=== PATIENT | female | born 1965 | race Caucasian/White ===

== ENCOUNTER 2020-02-21 08:56 | Emergency (ER) | payer BC, OTHER ==
--- NOTE | 2020-02-21 10:37 | EDPHYS ---
Physician Documentation [facility] Name: Amina Chung Age: 54 yrs Sex: Female : 1965 Arrival Date: 02/21/2020 Time: 08:58 Bed 19 Private MD: LISS MORRELL ED Physician Zacarias Page HPI: 02/20 10:34 This 54 yrs old Female presents to ER via Ambulatory with complaints of Leg kb Swelling. 10:34 The patient presents with pain, swelling. The complaints affect the right quadriceps. kb Context: The problem was sustained at home, resulted from an unknown cause, the patient can fully bear weight, the patient is able to ambulate, Problem is a result from a previous injury: No. Onset: The symptoms/episode began/occurred 2 day(s) ago. Modifying factors: The symptoms are alleviated by nothing. the symptoms are aggravated by nothing. Associated signs and symptoms: Pertinent positives: swelling, Pertinent negatives calf tenderness, fever, nausea, numbness, rash, tingling, vomiting, warmth, weakness. Treatment prior to arrival includes: no previous treatment. Severity of symptoms: At their worst the symptoms were mild, moderate, in the emergency department the symptoms are unchanged. The patient has not experienced similar symptoms in the past. The patient has not recently seen a physician. Pt reports right thigh pain and swelling for 2 days. Went to her PCP today and was sent for an US to rule out DVT. 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 - Social history:: Smoking status: Patient denies any tobacco usage or history of. ROS: 10:33 Constitutional: Negative for fever, chills, and weight loss, Cardiovascular: Negative kb for chest pain, palpitations, and edema, Respiratory: Negative for shortness of breath, cough, wheezing, and pleuritic chest pain, Abdomen/GI: Negative for abdominal pain, nausea, vomiting, diarrhea, and constipation, Back: Negative for injury and pain, Skin: Negative for injury, rash, and discoloration, Neuro: Negative for headache, weakness, numbness, tingling, and seizure. 10:33 MS/extremity: Positive for pain, swelling, of the right quadriceps. Exam: 10:33 Constitutional: This is a well developed, well nourished patient who is awake, alert, kb and in no acute distress. Head/Face: Normocephalic, atraumatic. Chest/axilla: Normal chest wall appearance and motion. Nontender with no deformity. No lesions are appreciated. Cardiovascular: Regular rate and rhythm with a normal S1 and S2. No gallops, murmurs, or rubs. Normal PMI, no JVD. No pulse deficits. Respiratory: Lungs have equal breath sounds bilaterally, clear to auscultation and percussion. No rales, rhonchi or wheezes noted. No increased work of breathing, no retractions or nasal flaring. Abdomen/GI: Soft, non-tender, with normal bowel sounds. No distension or tympany. No guarding or rebound. No evidence of tenderness throughout. Skin: Warm, dry with normal turgor. Normal color with no rashes, no lesions, and no evidence of cellulitis. MS/ Extremity: Pulses equal, no cyanosis. Neurovascular intact. Full, normal range of motion. Neuro: Awake and alert, GCS 15, oriented to person, place, time, and situation. Cranial nerves II-XII grossly intact. Motor strength 5/5 in all extremities. Sensory grossly intact. Cerebellar exam normal. Normal gait. Vital Signs: 09:41 BP 143 / 76; Pulse 75; Resp 15 S; Temp 97.3(TE); Pulse Ox 100% on R/A; Weight 96.62 kg ca1 (R); Height 5 ft. 4 in. (162.56 cm) (R); Pain 5/10; 10:30 BP 132 / 85; Pulse 76; Resp 18; Temp 97.5; Pulse Ox 99% on R/A; ph 09:41 Body Mass Index 36.56 (96.62 kg, 162.56 cm) ca1 MDM: 09:53 Patient medically screened. kb 10:34 Data reviewed: vital signs, nurses notes. Data interpreted: Pulse oximetry: on room air kb is 100 %. Interpretation: normal. 10:35 Counseling: I had a detailed discussion with the patient and/or guardian regarding: the kb historical points, exam findings, and any diagnostic results supporting the discharge/admit diagnosis, radiology results, the need for outpatient follow up, a family practitioner, to return to the emergency department if symptoms worsen or persist or if there are any questions or concerns that arise at home. 02/20 09:47 Order name: US Extremity Venous Unilateral Ltd kb Administered Medications: No medications were administered Disposition: 12:25 Co-signature as Attending Physician, Zacarias Page MD. rn Disposition: 02/21/20 10:36 Discharged to Home. Impression: Pain in right leg. - Condition is Stable. - Discharge Instructions: Musculoskeletal Pain. - Medication Reconciliation Form, Thank You Letter, Antibiotic Education, Prescription Opioid Use form. - Follow up: Emergency Department; When: As needed; Reason: Worsening of condition. Follow up: LISS MORRELL; When: 2 - 3 days; Reason: Recheck today's complaints, Continuance of care, Re-evaluation by your physician. Signatures: Dispatcher [employer] EDMS Felicia Harrison, ASSEMBLER INSTALLER GENERAL-C ASSEMBLER INSTALLER GENERAL-Ckb Zacarias Page MD MD rn Sonya Manriquez RN RN aa5 Maren Adan RN RN ca1 Corrections: (The following items were deleted from the chart) 10:57 10:36 02/21/2020 10:36 Discharged to Home. Impression: Pain in right leg. Condition is aa5 Stable. Forms are Medication Reconciliation Form, Thank You Letter, Antibiotic Education, Prescription Opioid Use. Follow up: Emergency Department; When: As needed; Reason: Worsening of condition. Follow up: LISS MORRELL; When: 2 - 3 days; Reason: Recheck today's complaints, Continuance of care, Re-evaluation by your physician. kb
--- NOTE | 2020-02-21 10:37 | ER ---
Nurse's Notes [facility] Name: Amina Chung Age: 54 yrs Sex: Female : 1965 Arrival Date: 02/21/2020 Time: 08:58 Bed 19 Private MD: LISS MORRELL Diagnosis: Pain in right leg Presentation: 02/20 09:41 Chief complaint: Patient states: R leg swelling x 2 days, Pain on R thigh x 4-5 days. ca1 Referred by Marilyn Morrell for possible DVT. Denies hx of DVT. Coronavirus screen: Patient denies a cough. Patient denies shortness of breath or difficulty breathing. Patient denies measured and/or subjective temperature greater than 100.4F prior to today's visit. Patient denies travel on a cruise ship or to a country the [facility] currently lists as an affected area. Patient denies contact with known and/or suspected case of COVID-19. Proceed with normal triage. Ebola Screen: Patient negative for fever greater than or equal to 101.5 degrees Fahrenheit, and additional compatible Ebola Virus Disease symptoms Patient denies exposure to infectious person. Patient denies travel to an Ebola-affected area in the 21 days before illness onset. No symptoms or risks identified at this time. Initial Sepsis Screen: Does the patient meet any 2 criteria? No. Patient's initial sepsis screen is negative. Does the patient have a suspected source of infection? No. Patient's initial sepsis screen is negative. Risk Assessment: Do you want to hurt yourself or someone else? Patient reports no desire to harm self or others. Onset of symptoms was February 21, 2020. 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 - Social history:: Smoking status: Patient denies any tobacco usage or history of. Screenin:30 Abuse screen: Denies threats or abuse. Denies injuries from another. Nutritional ph screening: No deficits noted. Tuberculosis screening: No symptoms or risk factors identified. Fall Risk None identified. Assessment: 10:00 General: Appears in no apparent distress. uncomfortable, Behavior is calm, cooperative, ph appropriate for age, Denies fever. Pain: Complains of pain in medial aspect of right thigh. Neuro: Level of Consciousness is awake, alert, obeys commands, Oriented to person, place, time, situation. Cardiovascular: Denies chest pain, shortness of breath, Capillary refill < 3 seconds in bilateral fingers toes Patient's skin is warm and dry. Respiratory: Airway is patent Respiratory effort is even, unlabored, Respiratory pattern is regular, symmetrical, Denies shortness of breath. Derm: Skin is intact, Skin is pink, warm \T\ dry. Musculoskeletal: Circulation, motion, and sensation intact. Range of motion: intact in all extremities, Swelling present in right quadriceps. 10:55 Reassessment: Patient is alert, oriented x 3, equal unlabored respirations, skin aa5 warm/dry/pink. Vital Signs: 09:41 BP 143 / 76; Pulse 75; Resp 15 S; Temp 97.3(TE); Pulse Ox 100% on R/A; Weight 96.62 kg ca1 (R); Height 5 ft. 4 in. (162.56 cm) (R); Pain 5/10; 10:30 BP 132 / 85; Pulse 76; Resp 18; Temp 97.5; Pulse Ox 99% on R/A; ph 09:41 Body Mass Index 36.56 (96.62 kg, 162.56 cm) ca1 ED Course: 08:58 Patient arrived in ED. ag5 08:58 LISS MORRELL is Private Physician. ag5 09:00 Felicia Harrison FNP-C is [facility]. kb 09:00 Zacarias Page MD is Attending Physician. kb 09:44 Triage completed. ca1 09:45 Arm band placed on right wrist. ca1 09:58 Jaye Lopez, FREDERICK is Primary Nurse. ph 10:25 US Extremity Venous Unilateral Ltd In Process Unspecified. EDMS 10:30 Patient has correct armband on for positive identification. Placed in gown. Bed in low ph position. Call light in reach. 10:35 LISS MORRELL is Referral Physician. kb 10:55 Patient did not have IV access during this emergency room visit. aa5 10:55 No provider procedures requiring assistance completed. aa5 Administered Medications: No medications were administered Outcome: 10:36 Discharge ordered by . indira 10:55 Discharged to home ambulatory. aa5 10:55 Condition: stable 10:55 Discharge instructions given to patient, Instructed on discharge instructions, follow up and referral plans. Demonstrated understanding of instructions, follow-up care. 10:57 Patient left the ED. aa5 Signatures: Dispatcher [employer] EDFelicia Gibson, WEI-C PROCESS HELPER-Sonya Dumont, RN RN aa5 Jaye Lopez RN RN Antionette, Maren RN RN [facility] Kathryn Galicia [facility]
--- NOTE | 2020-02-21 10:58 | RAD REPORT ---
EXAM DESCRIPTION: US - Extremity Venous Uni Ltd - 02/21/2020 10:25 am CLINICAL HISTORY: Pain;Swelling COMPARISON: None. TECHNIQUE: Real-time sonographic evaluation of the right lower extremity deep venous systems was per formed. One cine loop sequence was accidentally labeled left leg FINDINGS: Normal compressibility, flow augmentation, phasic flow and spontaneous flow are identified in the right lower extremity common femoral, superficial femoral, popliteal and posterior tibial vei ns. No intraluminal filling defects seen. IMPRESSION: No DVT in the right lower extremity.
--- OUTSIDE RECORDS SUMMARY | 2020-02-21 11:41 | XMS REPORT | Continuity of Care Document ---
:1965 Author Organization [facility] t Address [address] [place] [address] Care Team Providers Name Role Phone Jason LANDA Attending Clinician Doctor Unassigned, Name Attending Clinician Unavailable Problems This patient has no known problems. Allergies, Adverse Reactions, Alerts This patient has no known allergies or adverse reactions. Medications This patient has no known medications. Procedures This patient has no known procedures. Encounters Start End Encounter Admission Attending Care Care Encounter Source Date/Time Date/Time Type Type Clinicians Facility Department ID 2019-09-27 2019-09-27 Urgent FERMIN Gomez [id number] 19:57:26 20:12:26 Care [facility] [id number] Surgical [id number] Specialti [id number] [address] [place] 2019-09-27 2019-09-27 Orders Doctor PATEL [id number] 00:00:00 00:00:00 Only Unassigned, DIETER [id number] Ronan [facility] [id number] Results This patient has no known results.
[2020-02-22 02:02] VITALS: BP 143/76; TEMP 97.3; O2SAT 100
== END 2020-02-21 10:57 | disposition home or self-care (01) ==
LOC: ER 08:56
DX: M79.661 Pain in right lower leg (principal)
CPT/HCPCS: 93971; 99283

== ENCOUNTER 2021-08-08 17:51 | Emergency (ER) | payer OTHER ==
--- OUTSIDE RECORDS SUMMARY | 2021-08-08 17:53 | XMS REPORT | Continuity of Care Document ---
:1965 Author Organization [facility] t Address [address] [place] [address] Care Team Providers Name Role Phone Nel Montgomery Primary Care Physician Jahaira FRANKEL L Attending Clinician Carin CAMPO Attending Clinician Unavailable Doctor Unassigned, Name Attending Clinician Unavailable Jason LANDA Attending Clinician Payers Payer Name Policy Type Policy Number Effective Date Expiration Date S ource Problems Condition Condition Condition Status Onset Resolution Last Treating Co mments Source Name Details Category Date Date Treatment Clinician Date No known No known Disease Unive rs active active ity of problems problems [facility] Allergies, Adverse Reactions, Alerts Allergy Allergy Status Severity Reaction(s) Onset Inactive Treating Comm ents Source Name Type Date Date Clinician NO KNOWN Drug Active Univers ALLERGIE Class ity of S [facility] Social History Social Habit Start Date Stop Date Quantity Comments Source Exposure to Not sure [facility] SARS-CoV-2 (event) Medica l [place] Tobacco use and 2018-10-08 2018-10-08 Never used [facility] exposure 00:00:00 00:00:00 Medical [place] Sex Ass[birth year] At [birth year] [facility] [place] 00:00:00 00:00:00 Medical Branch Smoking Status Start Date Stop Date Source Never smoker [facility] Medical Branch Medications Ordered Filled Start Stop Current Ordering Indication Dosage Frequency Signature Comments Components Source Medication Medication Date Date Medication? Clinician (SIG) Name Name methylPREDN 2021-0 Yes [id number] 84mg Take 21 Univers ISolone 9-27 tablets by ity of (MEDROL, 00:00: mouth [place] TERE,) 4 mg 00 SEE-INSTRU Med ical tablets CTIONS. Branch follow package directions methylPREDN 202-0 Yes [id number] 84mg Take 21 Univers ISolone 9-27 tablets by ity of (MEDROL, 00:00: mouth [place] TERE,) 4 mg 00 SEE-INSTRU Med ical tablets CTIONS. Branch follow package directions methylPREDN 1-0 Yes [id number] 84mg Take 21 Univers ISolone 9-27 tablets by ity of (MEDROL, 00:00: mouth [place] TERE,) 4 mg 00 SEE-INSTRU Med ical tablets CTIONS. Branch follow package directions methylPREDN 2020-0 Yes [id number] 84mg Take 21 Univers ISolone 9-15 tablets by ity of (MEDROL, 00:00: mouth [place] TERE,) 4 mg 00 SEE-INSTRU Med ical tablets CTIONS. Branch follow package directions methylPREDN 2020-0 Yes Take by Un fátima ISolone 9-15 mouth ity of (MEDROL, 00:00: SEE-INSTRU Le[place] as TERE,) 4 mg 00 CTIONS. Medica l tablets follow Branch package directions methylPREDN 1-0 Yes [id number] 84mg Take 21 Univers ISolone 9-15 tablets by ity of (MEDROL, 00:00: mouth [place] TERE,) 4 mg 00 SEE-INSTRU Med ical tablets CTIONS. Branch follow package directions methylPREDN 2021-0 Yes Take by Un fátima ISolone 9-15 mouth ity of (MEDROL, 00:00: SEE-INSTRU Leonel as TERE,) 4 mg 00 CTIONS. Medica l tablets follow Branch package directions methylPREDN 2021-0 Yes [id number] 84mg Take 21 Univers ISolone 9-15 tablets by ity of (MEDROL, 00:00: mouth [place] TERE,) 4 mg 00 SEE-INSTRU Med ical tablets CTIONS. Branch follow package directions methylPREDN 2021-0 Yes Take by Un fátima ISolone 9-15 mouth ity of (MEDROL, 00:00: SEE-INSTRU Leonel as TERE,) 4 mg 00 CTIONS. Medica l tablets follow Branch package directions naproxen 0 Yes [id number] 500mg Take 1 Univers (NAPROSYN) 02-27 [id number] tablet by it y of 500 mg 00:00: mouth 2 [place] tablet 00 (two) Medical times Branch daily with meals. naproxen 0 Yes [id number] 500mg Take 1 Univers (NAPROSYN) 7 [id number] tablet by it y of 500 mg 00:00: mouth 2 [place] tablet 00 (two) Medical times Branch daily with meals. naproxen 0 Yes [id number] 500mg Take 1 Univers (NAPROSYN) 02-27 [id number] tablet by it y of 500 mg 00:00: mouth 2 [place] tablet 00 (two) Medical times Branch daily with meals. methylPREDN 2019-0 Yes [id number] Take by Univers ISolone 2-25 mouth ity of (MEDROL, 00:00: SEE-INSTRU Leonel as TERE,) 4 mg 00 CTIONS. Medica l tablets follow Branch package directions bromphenira 2020-0 Yes [id number] 5mL Take 5 mL Univers mine-pseudo 2-25 by mouth 3 it y of ephedrine-D 00:00: (three) [place] as M (BROMFED 00 times Medical DM) 2-30-10 daily as Bran ch mg/5 mL needed for syrup Congestion /Allergies . cetirizine 2020-0 Yes [id number] 10mg Take 1 U nivers 10 mg 2-25 tablet by ity of tablet 00:00: mouth [place] 00 daily. Medical Branch methylPREDN 2020-0 Yes [id number] Take by Univers ISolone 2-25 mouth ity of (MEDROL, 00:00: SEE-INSTRU Leonel as TERE,) 4 mg 00 CTIONS. Medica l tablets follow Branch package directions bromphenira 2020-0 Yes [id number] 5mL Take 5 mL Univers mine-pseudo 2-25 by mouth 3 it y of ephedrine-D 00:00: (three) [place] as M (BROMFED 00 times Medical DM) 2-30-10 daily as Bran ch mg/5 mL needed for syrup Congestion /Allergies . cetirizine 0 Yes [id number] 10mg Take 1 U nivers 10 mg 2-25 tablet by ity of tablet 00:00: mouth [place] 00 daily. Medical Branch methylPREDN 0 Yes [id number] Take by Univers ISolone 2-25 mouth ity of (MEDROL, 00:00: SEE-INSTRU Leonel as TERE,) 4 mg 00 CTIONS. Medica l tablets follow Branch package directions bromphenira 0 Yes [id number] 5mL Take 5 mL Univers mine-pseudo 2-25 by mouth 3 it y of ephedrine-D 00:00: (three) [place] as M (BROMFED 00 times Medical DM) 2-30-10 daily as Bran ch mg/5 mL needed for syrup Congestion /Allergies . cetirizine Yes [id number] 10mg Take 1 U nivers 10 mg 2-25 tablet by ity of tablet 00:00: mouth [place] 00 daily. Medical Branch butalbital- Yes 1{tbl} Take 1 Un fátima acetaminoph 1-24 tablet by ity of en-caff 00:00: mouth [place] 50-325-40 00 every 4 Medical mg tablet (four) Branch hours as needed for Pain (scale 1-3). butalbital- Yes 1{tbl} Take 1 Un fátima acetaminoph 1-24 tablet by ity of en-caff 00:00: mouth [place] 50-325-40 00 every 4 Medical mg tablet (four) Branch hours as needed for Pain (scale 1-3). butalbital- Yes 1{tbl} Take 1 Un fátima acetaminoph 1-24 tablet by ity of en-caff 00:00: mouth [place] 50-325-40 00 every 4 Medical mg tablet (four) Branch hours as needed for Pain (scale 1-3). metoclopram 2016-08 Yes 10mg Take 1 Univ ers kwaku HCl 10 2-07 tablet by ity of mg tablet 00:00: mouth [place] 00 every 6 Medical (six) Branch hours as needed for Nausea and Vomiting (N/V). metoclopram 2016-08 Yes 10mg Take 1 Univ ers kwaku HCl 10 2-07 tablet by ity of mg tablet 00:00: mouth [place] 00 every 6 Medical (six) Branch hours as needed for Nausea and Vomiting (N/V). metoclopram 2016-08 Yes 10mg Take 1 Univ ers kwaku HCl 10 2-07 tablet by ity of mg tablet 00:00: mouth [place] 00 every 6 Medical (six) Branch hours as needed for Nausea and Vomiting (N/V). butalbital- 2016-08 Yes 1{tbl} Take 1 Un fátima acetaminoph 2-05 tablet by ity of en-caff 00:00: mouth [place] 50-325-40 00 every 4 Medical mg tablet (four) Branch hours as needed for Pain (scale 4-6). butalbital- 2016-08 Yes 1{tbl} Take 1 Un fátima acetaminoph 2-05 tablet by ity of en-caff 00:00: mouth [place] 50-325-40 00 every 4 Medical mg tablet (four) Branch hours as needed for Pain (scale 4-6). butalbital- 2016-08 Yes 1{tbl} Take 1 Un fátima acetaminoph 2-05 tablet by ity of en-caff 00:00: mouth [place] 50-325-40 00 every 4 Medical mg tablet (four) Branch hours as needed for Pain (scale 4-6). cyclobenzap 2016-08 Yes 5mg Take 1 Univ ers rine 5 mg 2-01 tablet by ity o f tablet 00:00: mouth 3 [place] 00 (three) Medical times Branch daily. traMADOL 2016-08 Yes 50mg Take 1 Univers (ULTRAM) 50 2-01 tablet by ity of mg tablet 00:00: mouth [place] 00 every 6 Medical (six) Branch hours as needed for Pain (scale 4-6). cyclobenzap 2016-08 Yes 5mg Take 1 Univ ers rine 5 mg 2-01 tablet by ity o f tablet 00:00: mouth 3 [place] 00 (three) Medical times Branch daily. traMADOL 2016-08 Yes 50mg Take 1 Univers (ULTRAM) 50 2-01 tablet by ity of mg tablet 00:00: mouth [place] 00 every 6 Medical (six) Branch hours as needed for Pain (scale 4-6). cyclobenzap 2016-08 Yes 5mg Take 1 Univ ers rine 5 mg 2-01 tablet by ity o f tablet 00:00: mouth 3 [place] 00 (three) Medical times Branch daily. traMADOL 2016- Yes 50mg Take 1 Univers (ULTRAM) 50 2-01 tablet by ity of mg tablet 00:00: mouth [place] 00 every 6 Medical (six) Branch hours as needed for Pain (scale 4-6). Vital Signs Vital Name Observation Time Observation Value Comments Source Systolic blood 2021-06-19 19:33:00 152 mm[Hg] Univer sity of pressure [facility] Diastolic blood 2021-06-19 19:33:00 71 mm[Hg] Unive rsity of [facility] Heart rate 2021-06-19 19:33:00 85 /min [facility] Respiratory rate 2021-06-19 19:33:00 20 /min [facility] height 2021-06-19 19:33:00 162.6 cm [facility] Body weight 2021-06-19 19:33:00 91.4 kg [facility] BMI 2021-06-19 19:33:00 34.59 kg/m2 [facility] Oxygen saturation in 2021-06-19 19:33:00 98 /min [facility] Arterial blood by [facility] Pulse oximetry [place] Procedures Procedure Date / Time Performing Clinician Source Performed [facility] 2021-06-05 05:01:00 Doctor Unassigned, No Univ [facility] DOCUMENTATION Name [facility] Branch Encounters Start End Encounter Admission Attending Care Care Encounter Source Date/Time Date/Time Type Type Clinicians Facility Department ID 2021-06-19 2021-06-19 Office [facility] [id number] Univers 13:27:05 13:40:42 Visit Jeff GREWAL [id number] it y of [place] [id number] Leonel as MIRANDA?BLEA [id number] Ut [address]l BALAJI [address] Branch MEDICAL OFFICE BUILDING 2021-06-05 2021-06-05 Hospital Jahaira [facility] [id number] Univers 10:49:00 23:59:00 Encounter Jeff HARMON [id number] [id number] [id number] [address] Branch 2021-06-05 2021-06-05 [id number] [facility] 00:00:00 00:00:00 JEFF sherie [facility] 2021-06-05 2021-06-05 Orders Doctor AMANDA [id number] Univers 00:00:00 00:00:00 Only Unassigned, DIETER [id number] ity of [place] [facility] [id number] Le[place] as [id number] [place] [address] Branch 2019-09-27 2019-09-27 [facility] [id number] 19:57:26 20:12:26 Care [facility] [id number] Surgical [id number] Specialti [id number] [address] [place] 2019-09-27 2019-09-27 Orders Doctor AMANDA [id number] 00:00:00 00:00:00 Only Unassigned, DIETER [id number] [place] [facility] [id number] [id number] Results This patient has no known results.
[2021-08-08 19:30] LABS: Absolute Lymphocytes (CBC) 2.4 K/uL (0.7-4.9); Hematocrit 40.9 % (36.0-45.0); Lymphocytes % 25.1 % (15.3-44.8); MPV 8.1 fL (7.6-11.3); RBC Red Blood Cell Count 4.83 M/uL (3.86-4.86)
[2021-08-08 19:32] LABS: Protime INR 0.89
[2021-08-08 20:12] LABS: BUN Blood Urea Nitrogen 17 mg/dL (7-18); Bicarbonate 28 mmol/L (21-32); Glucose Level 119 mg/dL (74-106); Potassium 3.7 mmol/L (3.5-5.1); Sodium Level 140 mmol/L (136-145)
--- NOTE | 2021-08-08 20:15 | RAD REPORT ---
EXAM DESCRIPTION: RAD - Chest Single View - 08/08/2021 7:58 pm CLINICAL HISTORY: CHEST PAIN COMPARISON: March 2017 TECHNIQUE: AP portable chest image was obtained 08/08/2021 7:58 pm . FINDINGS: Lungs are clear. Heart and vasculature are normal. No measurable pleural effusion and no p neumothorax. No acute bony abnormality seen. No acute aortic findings suspected. IMPRESSION: No acute cardiopulmonary process. No significant change from comparison study.
[2021-08-08 21:40] LABS: ALT/SGPT 54 U/L (12-78); AST/SGOT 24 U/L (15-37); Albumin 3.7 g/dL (3.4-5.0); Alkaline Phosphatase 132 U/L (45-117); Bilirubin Direct < 0.1 mg/dL (0-0.2); Bilirubin Total 0.2 mg/dL (0.2-1.0); NT PRO-BNP 27 pg/mL (<125); Protein, Total 7.6 g/dL (6.4-8.2); Troponin (Emerg Dept Use Only) < 0.02 ng/mL (0.0-0.045)
[2021-08-08] MEDS ORDERED: LORAZEPAM 1 MG TABLET ONE (22:21)
[2021-08-08] MEDS ORDERED: ASPIRIN 81 MG CHEWABLE TABLET ONE (22:22)
[2021-08-08] MEDS ORDERED: NA CHLORIDE 0.9% 500 ML ONE (22:50)
[2021-08-08 23:32] LABS: Urine Blood Trace-lysed (Negative); Urine Glucose Negative (Negative); Urine Protein Negative (Negative); Urine Specific Gravity >=1.030 (1.005-1.030)
[2021-08-09] MEDS ORDERED: ACETAMINOPHEN 325 MG TABLET ONE (00:23)
[2021-08-09] MEDS ORDERED: ACETAMINOPHEN 500 MG TAB ONE (00:26)
--- NOTE | 2021-08-09 00:26 | ER ---
Nurse's Notes [facility] Name: Amina Chung Age: 55 yrs Sex: Female : 1965 Arrival Date: 08/08/2021 Time: 17:55 Bed 19 Private MD: Diagnosis: Elevated blood-pressure reading, without diagnosis of hypertension;Chest pain, unspecified;Shortness of breath Presentation: 08/08 19:02 Chief complaint: Patient states: chest pain, difficulty breathing and high BP since vg1 yesterday. States yesterday and today systolic of 170s. Denies h/a and NVD. Coronavirus screen: Vaccine status: Patient reports receiving the 2nd dose of the covid vaccine. Client denies travel out of the [place] in the last 14 days. Ebola Screen: Patient negative for fever greater than or equal to 101.5 degrees Fahrenheit, and additional compatible Ebola Virus Disease symptoms. Initial Sepsis Screen: Does the patient meet any 2 criteria? No. Patient's initial sepsis screen is negative. Does the patient have a suspected source of infection? No. Patient's initial sepsis screen is negative. Risk Assessment: Do you want to hurt yourself or someone else? Patient reports no desire to harm self or others. Onset of symptoms was August 08, 2021. 19:02 Method Of Arrival: Ambulatory vg1 19:02 Acuity: GRAHAM 3 vg1 Triage Assessment: 19:03 General: Appears in no apparent distress. comfortable, Behavior is calm, cooperative. vg1 Pain: Complains of pain in mid-sternal area Pain does not radiate. Pain currently is 5 out of 10 on a pain scale. Respiratory: Reports shortness of breath on exertion Airway is patent Respiratory effort is even, unlabored, Onset: The symptoms/episode began/occurred yesterday, the patient has mild shortness of breath. 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 - Social history:: Smoking status: Patient denies any tobacco usage or history of. Screenin:59 Abuse screen: Denies threats or abuse. Denies injuries from another. Nutritional kd3 screening: No deficits noted. Tuberculosis screening: No symptoms or risk factors identified. Fall Risk IV access (20 points). Assessment: 22:08 Cardiovascular:. vc1 22:24 General: Patient and daughter asked if we could retake her blood pressure since it was vc1 164/90 previously. Blood pressure now higher. Patient stated she is tired and has to work tomorrow and just wants to know why her blood pressure is rising. Patient educated on how being frustrated with having to wait so long can cause an increase in blood pressure. Patient stated she wasn't frustrated just tired. Notified provider of new blood pressure.. Cardiovascular: Rhythm is regular. Respiratory: Airway is patent Respiratory effort is even, unlabored, Respiratory pattern is regular, Breath sounds are clear. 23:00 Reassessment: Patient is alert, oriented x 3, equal unlabored respirations, skin kd3 warm/dry/pink. Patient denies pain at this time. Patient states symptoms have improved. Vital Signs: 19:02 BP 164 / 90; Pulse 87; Resp 22; Temp 97.8; Pulse Ox 100% ; Weight 84.82 kg; Height 5 vg1 ft. 4 in. (162.56 cm); Pain 5/10; 22:27 BP 193 / 98; Pulse 86; Resp 20; Pulse Ox 99% on R/A; vc1 23:00 BP 156 / 83; Pulse 72; Resp 17; Pulse Ox 98% on R/A; kd3 08/09 00:26 BP 167 / 96; Pulse 78; Resp 16; Pulse Ox 100% on R/A; kd3 08/08 19:02 Body Mass Index 32.10 (84.82 kg, 162.56 cm) vg1 ED Course: 08/08 17:55 Patient arrived in ED. mr 19:03 Triage completed. vg1 19:03 Arm band placed on. vg1 19:05 EKG completed in triage. Results shown to MD. vg1 19:11 Yadiel Julio PA is PHCP. cp 19:11 Heath Dos Santos MD is Attending Physician. cp 19:58 XRAY Chest (1 view) In Process Unspecified. EDMS 22:46 Eileen Pool, RN is Primary Nurse. kd3 22:59 Patient has correct armband on for positive identification. Placed in gown. Bed in low kd3 position. Side rails up X2. 23:17 COVID-19 SARS RT PCR (Document "Date of Onset" if Symptomatic) Sent. kd3 23:50 Troponin (emerg Dept Use Only) Sent. kd3 23:50 Troponin (Emerg Dept Use Only) Sent. kd3 08/09 00:24 Atif Story MD is Referral Physician. cp 00:34 No provider procedures requiring assistance completed. IV discontinued, intact, kd3 bleeding controlled, No redness/swelling at site. Administered Medications: 08/08 22:27 Drug: Aspirin Chewable Tablet 324 mg Route: PO; vc1 22:27 Drug: Ativan (LORazepam) 1 mg Route: PO; vc1 22:58 Drug: NS 0.9% 500 ml Route: IV; Rate: bolus; Site: right antecubital; kd3 23:16 Follow up: Rate change 500 bolus; IV Status: Completed infusion kd3 08/09 00:24 Drug: Tylenol 1000 mg Route: PO; kd3 Outcome: 00:26 Discharge ordered by . cp 00:34 Discharged to home ambulatory. kd3 00:34 Condition: stable 00:34 Discharge instructions given to patient, Instructed on discharge instructions, follow up and referral plans. Demonstrated understanding of instructions, follow-up care. 00:34 Patient left the ED. kd3 Signatures: Dispatcher [employer] EDTN FreddyCecelia Corey, PA PA cp Garcia, Victoria, RN RN vg1 Eileen Pool RN RN kd3 Aleisha Gutierrez RN RN vc1
--- NOTE | 2021-08-09 00:27 | EDPHYS ---
Physician Documentation [facility] Name: Amina Chung Age: 55 yrs Sex: Female : 1965 Arrival Date: 08/08/2021 Time: 17:55 Bed 19 Private MD: ED Physician Heath Dos Santos HPI: 08/08 19:11 This 55 yrs old Female presents to ER via Ambulatory with complaints of Breathing cp Difficulty. 19:11 The patient has shortness of breath at rest, with light activity. Onset: The cp symptoms/episode began/occurred yesterday. Duration: The symptoms are continuous, and are steadily getting worse. Associated signs and symptoms: Pertinent positives: chest pain. 19:11 Severity of symptoms: in the emergency department the symptoms are unchanged. cp 19:12 Patient reports concern for elevated blood pressure that she has been measuring with cp home device since yesterday. Patient denies history of hypertension. 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 - Social history:: Smoking status: Patient denies any tobacco usage or history of. ROS: 19:15 Constitutional: Negative for body aches, chills, fever, poor PO intake. cp 19:15 Cardiovascular: Positive for chest pain, Negative for edema, palpitations. cp 19:15 Respiratory: Positive for shortness of breath, at rest. Negative for cough, wheezing. 19:15 Abdomen/GI: Negative for abdominal pain, nausea, vomiting, and diarrhea. 19:15 Eyes: Negative for injury, pain, redness, and discharge. cp 19:15 ENT: Negative for drainage from ear(s), ear pain, sore throat, difficulty swallowing, difficulty handling secretions. 19:15 Neck: Negative for pain with movement, pain at rest, stiffness. 19:15 : Negative for urinary symptoms. 19:15 Neuro: Negative for altered mental status, dizziness, headache, syncope, weakness. 19:15 All other systems are negative. Exam: 19:05 ECG was reviewed by the Attending Physician. cp 19:20 Constitutional: The patient appears in no acute distress, alert, awake, cp non-diaphoretic, non-toxic, well developed, well nourished. 19:20 Head/Face: Normocephalic, atraumatic. cp 19:20 Eyes: Periorbital structures: appear normal, Conjunctiva: normal, no exudate, no injection, Sclera: no appreciated abnormality, Lids and lashes: appear normal, bilaterally. 19:20 ENT: External ear(s): are unremarkable, Nose: is normal, Mouth: Lips: moist, Oral mucosa: pink and intact, moist, Posterior pharynx: Airway: no evidence of obstruction, patent. 19:20 Neck: ROM/movement: is normal, is supple, without pain, no range of motions limitations, no nuchal rigidity. 19:20 Chest/axilla: Inspection: normal. 19:20 Cardiovascular: Rate: normal, Rhythm: regular, Heart sounds: murmur, not appreciated, Edema: is not appreciated, JVD: is not appreciated. 19:20 Respiratory: the patient does not display signs of respiratory distress, Respirations: normal, no use of accessory muscles, no retractions, labored breathing, is not present, Breath sounds: are clear throughout, no decreased breath sounds, no stridor, no wheezing. 19:20 Abdomen/GI: Exam negative for discomfort, distension, guarding, Inspection: abdomen appears normal. 19:20 Back: pain, is absent, ROM is normal. 19:20 Neuro: Orientation: to person, place \\T\\ time. Mentation: is normal, Motor: moves all fours, strength is normal, Sensation: is normal, Gait: is steady, at a normal pace, without difficulty. Vital Signs: 19:02 BP 164 / 90; Pulse 87; Resp 22; Temp 97.8; Pulse Ox 100% ; Weight 84.82 kg; Height 5 vg1 ft. 4 in. (162.56 cm); Pain 5/10; 22:27 BP 193 / 98; Pulse 86; Resp 20; Pulse Ox 99% on R/A; vc1 23:00 BP 156 / 83; Pulse 72; Resp 17; Pulse Ox 98% on R/A; kd3 08/09 00:26 BP 167 / 96; Pulse 78; Resp 16; Pulse Ox 100% on R/A; kd3 08/08 19:02 Body Mass Index 32.10 (84.82 kg, 162.56 cm) vg1 MDM: 08/08 20:00 Differential diagnosis: Anxiety Reaction CHF exacerbation, Chronic Obstructive cp Pulmonary Disease pneumonia, Pneumothorax pulmonary edema, Pulmonary Embolism Unstable Angina. 22:44 Patient medically screened. 08/09 00:25 Data reviewed: vital signs, nurses notes, lab test result(s), EKG, radiologic studies, cp plain films. 00:25 Test interpretation: by ED physician or midlevel provider: ECG, plain radiologic cp studies. Counseling: I had a detailed discussion with the patient and/or guardian regarding: the historical points, exam findings, and any diagnostic results supporting the discharge/admit diagnosis, the presence of at least one elevated blood pressure reading (>120/80) during this emergency department visit, lab results, radiology results, the need for outpatient follow up, for definitive care, a channel marketing specialist, a family practitioner, to return to the emergency department if symptoms worsen or persist or if there are any questions or concerns that arise at home. ED course: VSS. Blood pressure monitored during ED visit and remained elevated. EKG, initial and repeat troponin negative. Meds given in ED for anxiety improved symptoms. Discussed need for f/u with primary physician to discuss elevated blood pressure and recommend cardiology f/u. Discussed home monitoring of blood pressure. 08/08 19:09 Order name: Basic Metabolic Panel; Complete Time: 22:44 cp 08/08 20:43 Interpretation: Normal except: GLUC 119. cp 08/08 19:09 Order name: CBC with Diff; Complete Time: 20:43 cp 08/08 20:43 Interpretation: Normal except: MCV 84.7; MCH 28.5. cp 08/08 19:09 Order name: LFT's; Complete Time: 22:44 cp 08/08 22:44 Interpretation: Normal except: ALK 132; GLOB 3.9; A/G 0.9. cp 08/08 19:09 Order name: Magnesium; Complete Time: 22:44 cp 08/08 19:09 Order name: NT PRO-BNP; Complete Time: 22:44 cp 08/08 23:01 Interpretation: Reviewed. 08/08 19: Order name: PT-INR; Complete Time: 20:43 cp 08/08 19: Order name: Troponin (emerg Dept Use Only); Complete Time: 22:44 cp 08/08 23:01 Interpretation: Reviewed. cp 08/08 19:09 Order name: XRAY Chest (1 view); Complete Time: 20:43 cp 08/08 19:12 Order name: COVID-19 SARS RT PCR (Document "Date of Onset" if Symptomatic); Complete cp Time: 00:18 01 00:19 Interpretation: Reviewed. cp 08/08 23:18 Order name: Troponin (emerg Dept Use Only) cp 08/08 23:18 Order name: Troponin (Emerg Dept Use Only); Complete Time: 00:18 EDMS 08/08 23:31 Order name: Urine Dipstick-Ancillary; Complete Time: 23:53 EDMS 08/08 23:54 Interpretation: Normal except: UBLD Trace-lysed. cp 08/08 19:09 Order name: EKG; Complete Time: 19:10 cp 08/08 19:09 Order name: Cardiac monitoring; Complete Time: 22:58 cp 08/08 19:09 Order name: EKG - Nurse/Tech; Complete Time: 22:58 cp 08/08 19:09 Order name: IV Saline Lock; Complete Time: 22:58 cp 08/08 19:09 Order name: Labs collected and sent; Complete Time: 22:58 cp 08/08 19:09 Order name: O2 Per Protocol; Complete Time: 22:58 cp 08/08 19:09 Order name: O2 Sat Monitoring; Complete Time: 22:58 cp 08/08 19:09 Order name: Urine Dipstick-Ancillary (obtain specimen); Complete Time: 23:31 cp EC/06 19:05 Rate is 75 beats/min. Rhythm is regular. MT interval is normal. QRS interval is normal. cp QT interval is normal. T waves are Inverted in lead aVR. Interpreted by me. Reviewed by me. Administered Medications: 22:27 Drug: Aspirin Chewable Tablet 324 mg Route: PO; vc1 22:27 Drug: Ativan (LORazepam) 1 mg Route: PO; vc1 22:58 Drug: NS 0.9% 500 ml Route: IV; Rate: bolus; Site: right antecubital; kd3 23:16 Follow up: Rate change 500 bolus; IV Status: Completed infusion kd3 08/09 00:24 Drug: Tylenol 1000 mg Route: PO; kd3 Disposition: 02:11 Co-signature as Attending Physician, Heath Dos Santos MD. pkl Disposition Summary: 08/09/21 00:26 Discharge Ordered Location: Home cp Problem: new cp Symptoms: have improved cp Condition: Stable cp Diagnosis - Elevated blood-pressure reading, without diagnosis of hypertension cp - Chest pain, unspecified cp - Shortness of breath cp Followup: cp - With: Atif Story MD - When: 2 - 3 days - Reason: Recheck today's complaints Discharge Instructions: - Discharge Summary Sheet cp - Nonspecific Chest Pain, Adult cp - Shortness of Breath, Adult cp - Aspirin and Your Heart cp - How to Take Your Blood Pressure cp Forms: - Medication Reconciliation Form cp - Thank You Letter cp - Antibiotic Education cp - Prescription Opioid Use cp Signatures: Dispatcher [employer] EDMS Heath Dos Santos MD MD pkl Yadiel Julio PA PA cp Jodi Jean Baptiste, RN RN vg1 Eileen Pool RN RN kd3 Aleisha Gutierrez RN RN vc1 Corrections: (The following items were deleted from the chart) 08/08 22:28 19:09 Urine Test ordered. cp vc1
[2021-08-09 00:53] VITALS: TEMP 97.8
[2021-08-09 00:57] VITALS: BP 167/96; O2SAT 100
--- NOTE | 2021-08-09 10:05 | EKG ---
Test Date: 2021-08-08 Test Time: 18:58:40 Reed Repairer: DAY MEASUREMENT RESULTS: Intervals: Rate: 75 NH: 138 QRSD: 82 QT: 354 QTc: 395 [place]: P: NH: 138 QRS: 20 T: 20 INTERPRETIVE STATEMENTS: Normal sinus rhythm Normal ECG Compared to ECG 06/18/2017 15:44:05 No significant changes Electronically Signed On 08-09-21 10:04:22 RESEARCH ENVIRONMENTAL ENGINEER by Atif Story
== END 2021-08-09 00:34 | disposition home or self-care (01) ==
LOC: ER 17:51
DX: R03.0 Elevated blood-pressure reading, without diagnosis of hypertension (principal); R07.9 Chest pain, unspecified; Z20.822 Contact with and (suspected) exposure to COVID-19
CPT/HCPCS: 93005; 85025; 80048; 36415; 83735; 85610; 80076; 81003; 84484 ×2; 83880; 71045; 99284; U0003; J7040